=== PATIENT | male | born 1995 | race Two or more races ===

== ENCOUNTER 2020-11-29 09:15 | Emergency (ER) | payer OTHER ==
[~2020-11-29] VITALS: Ht 170.2 cm; Wt 88.0 kg
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
[2020-11-29] MEDS ORDERED: ONDA4TAB6 PO (13:18)
[2020-11-29 13:31] VITALS: BP 160/88
--- NOTE | 2020-11-30 07:08 | ECGEPIP ---
[facility] - ED Test Date: 2020-11-29 Pat Name: CHRISTINE VELÁSQUEZ Department: Room: - Gender: Male Senior Producer: avila : [id number] Requested By: GALEN Jose PA-C Order Number: [id number] Reading MD: Manas Cárdenas Measurements Intervals [place] Rate: 69 P: 37 MD: 144 QRS: 49 QRSD: 92 T: 8 QT: 392 QTc: 420 Interpretive Statements Normal sinus rhythm with sinus arrhythmia POOR R WAVE PROGRESSION Nonspecific ST and T wave abnormality NO PRIORS FOR COMPARISON Electronically Signed on 11-30-2020 7:07:36 EDT by Manas Cárdenas
== END 2020-11-29 13:30 | disposition home or self-care (01) ==
LOC: M ED 09:15
DX: R07.89 Other chest pain (principal); R07.0 Pain in throat; R11.2 Nausea with vomiting, unspecified; R19.7 Diarrhea, unspecified; F17.290 Nicotine dependence, other tobacco product, uncomplicated; Z88.5 Allergy status to narcotic agent

== ENCOUNTER 2021-03-21 17:43 | Emergency (ER) | payer OTHER ==
[~2021-03-21] VITALS: Ht 171.4 cm; Wt 90.4 kg
[~2021-03-21 17:43] MED LIST: ONDA4TAB6 PO
[2021-03-21 22:37] VITALS: BP 139/63
== END 2021-03-22 04:25 | disposition left against medical advice (07) ==
LOC: M ED 17:43
DX: Z53.21 Procedure and treatment not carried out due to patient leaving prior to being seen by health care provider (principal)